=== PATIENT | female | born 1965 | race Caucasian/White ===

== ENCOUNTER → 2018-01-05 | Outpatient (CLI) | payer OTHER ==
[~2018-01-05] MED LIST: ALBUTEROL0.09 MG/A2 INH; AMOXICILLIN500 MG PO; ASPI-COR81 M1; AUGMENTIN 875 M1 TAB PO; BENICAR40 MG PO; CIPRODEX 0.3%-7.5 ML OT; CORTISPORIN 1%-10 M1 OT; DAYPRO600 M1 PO; FIORICET 325 MG1 TAB PO; FLAGYL500 MG PO; FLONASE 0.05% 121 EA NAS; HYZAAR 50/12.5M1 TAB; KEFLEX500 MG PO; KLONOPIN WAFER0.5 MG PO; MEDROL DOSEPAK4 MG PO; METHOCARBAMOL750 MG PO; MOTRIN800 MG PO; NAPROSYN375 MG PO; NORCO 325 MG-101 TAB PO; PATADAY 2.5 ML2.5 ML OPH; PREDNICOT20 MG PO; PROVERA5 MG PO; PROZAC10 MG PO; QVAR40 MCG INH; RELAFEN500 MG PO; ROBAXIN750 MG PO; SIMVASTATIN10 MG PO; SPIRIVA -- 3018 MCG INH; SPIRIVA18 MCG PO; VICODIN 5/500 505 MG PO; VICODIN HP 6601 TAB PO; WELLBUTRIN XL300 MG PO; ZANTAC 150150 MG PO; ZANTAC150 MG PO; ZOFRAN4 MG PO; ZYRTEC10 MG PO
[2018-01-05 10:36] LABS: HEMATOCRIT 42.5 % (37.0-47.0); HEMOGLOBIN 13.8 g/dl (12.0-16.0); MEAN CELL VOLUME 95.5 fl (81.0-99.0); MEAN CORPUSCULAR HGB CONC 32.5 g/dl (33.0-37.0); MEAN PLATELET VOLUME 10.8 fl (9.6-12.3); RED BLOOD COUNT 4.45 10*6/uL (4.10-5.10); RED CELL DISTRI WIDTH 13.2 % (0-14.5); WHITE BLOOD COUNT 5.4 10*3/uL (4.8-10.8)
[2018-01-05 11:03] LABS: ALBUMIN 3.7 gm/dl (3.1-4.5); ALKALINE PHOSPHATASE 80 U/L (45-117); BUN 13 mg/dl (7-24); CHLORIDE 102 mmol/L (98-107); CREATININE 0.86 mg/dL (0.55-1.02); POTASSIUM 3.9 mmol/L (3.5-5.1); SGOT/AST 22 IU/L (3-35); SGPT/ALT 26 U/L (12-78); SODIUM 138 mmol/L (136-145); TOTAL PROTEIN 7.8 gm/dL (6.4-8.2)
== END | disposition home or self-care (01) ==
LOC: LAB 10:00
PROVIDERS: Registered Nurse Flight
DX: Z00.01 Encounter for general adult medical examination with abnormal findings (principal); I10 Essential (primary) hypertension; R53.83 Other fatigue; M51.36 Other intervertebral disc degeneration, lumbar region; F32.9 Major depressive disorder, single episode, unspecified

== ENCOUNTER → 2018-06-17 | Outpatient (CLI) | payer OTHER | END | disposition home or self-care (01) | LOC: US 13:00 | DX: D25.1 Intramural leiomyoma of uterus (principal); Z97.5 Presence of (intrauterine) contraceptive device ==

== ENCOUNTER → 2018-10-12 | Outpatient (CLI) | payer OTHER ==
--- NOTE | ~2018-10-12 | EKG ---
[place], [place] ELECTROCARDIOGRAM REPORT NAME: OCTAVIANO PERAZA UNIT #: [id number] ROOM: DOCTOR: KIMBER DRAFT REPORT BIRTHDATE: [birth year] [facility] Test Date: 2018-10-12 Test Time: 17:07:42 Pat Name: OCTAVIANO PERAZA Department: Room: Gender: F Supervisor [facility]: Mary Mendoza : 1965 Requested By: BERE HERNDON Order Number: [id number] Reading MD: Luis F John MD Measurements Intervals [place] Rate: 59 P: 30 [place]: 139 QRS: 4 QRSD: 92 T: 20 QT: 439 QTc: 435 Interpretive Statements Sinus rhythm No previous ECG available for comparison Electronically Signed On 10-13-2018 4:12:54 PST by Luis F John MD CM:EKGRPT:ELECTROCARDIOGRAM REPORT [id number] BERE QUIROGA DRAFT REPORT BERE HERNDON
== END ==
LOC: CARD 16:48
DX: Z01.818 Encounter for other preprocedural examination (principal)